=== PATIENT | female | born 1945 | race African-American/Black ===

== ENCOUNTER 2019-04-17 09:52 | Inpatient (IN) | payer MEDICARE, OTHER ==
[~2019-04-17] VITALS: Ht 167.6 cm; Wt 90.9 kg
[~2019-04-17 09:52] MED LIST: AMLO10TA80 PO; AMLO5TAB4; ASPI-1393 PO; ASPI-518 PO; BENA10TA12; BISA-81 PO; CHOL200074 PO; COR3; HYDR-4134 PO; INSU3INS8; ISOS10TA53 PO; METF500T7; SIMV10TA2; TORS20TA4 PO
[2019-04-17] MEDS ORDERED: ACETAMINOPHEN 325MG TABLET PO ONE (10:30)
[2019-04-17 11:07] LABS: BASOPHILS % 1.4 % (0.0-2.0); EOSINOPHILS % 5.6 % (0.0-5.0); HEMATOCRIT. 34.1 % (36.0-48.0); HEMOGLOBIN. 11.2 g/dL (12.0-16.0); LYMPHOCYTES % 20.5 % (20.0-50.0); MEAN CORPUSCULAR HEMOGLOBIN 30.1 pg (28.0-32.0); MEAN CORPUSCULAR VOLUME 91.7 fL (81.0-99.0); NEUTROPHILS % 64.5 % (40.0-76.0); PLATELET 195 x1000/uL (130-400); RED BLOOD CELL COUNT 3.72 mill/uL (4.2-5.4); RED CELL DISTRIBUTION WIDTH 15.5 % (11.6-14.6)
[2019-04-17 11:18] LABS: CHLORIDE 94 mEq/L (98-107)
[2019-04-17 11:26] LABS: BETA HYDROXYBUTYRATE 0.1 mMol/L (0.0-0.3)
[2019-04-17] MEDS ORDERED: INSULIN REGULAR (DRIP) 100 UNITS in SODIUM CHLORIDE 0.9% 100 ML IV ONE (13:00)
[2019-04-17] MEDS ORDERED: INSULIN REGULAR (DRIP) 100 UNITS in SODIUM CHLORIDE 0.9% 99 ML IV ONE (13:15)
[2019-04-17 13:27] LABS: CLARITY URINE CLEAR (CLEAR); COLOR URINE YELLOW (YELLOW); KETONES URINE TRACE (NEGATIVE); LEUKOCYTE ESTERASE URINE NEGATIVE (NEGATIVE); NITRITE URINE NEGATIVE (NEGATIVE); OCCULT BLOOD URINE TRACE (NEGATIVE); PH URINE 6.5 (4.5-8.0); PROTEIN URINE 2+ (NEGATIVE); UROBILINOGEN URINE 0.2 E.U./dL (0.2-1.0)
[2019-04-17] MEDS ORDERED: CLONIDINE 0.2MG TABLET PO ONE (13:30)
[2019-04-17 13:45] LABS: *AMPHETAMINES SCREEN URINE NEGATIVE (NEGATIVE); *BARBITURATES SCREEN URINE NEGATIVE (NEGATIVE); *BENZODIAZEPINES SCREEN URINE NEGATIVE (NEGATIVE); *COCAINE SCREEN URINE NEGATIVE (NEGATIVE); METHADONE URINE SCREEN NEGATIVE (NEGATIVE)
[2019-04-17 13:46] LABS: CANNABINOID URINE SCREEN NEGATIVE (NEGATIVE); OPIATES URINE SCREEN NEGATIVE (NEGATIVE); PHENCYCLIDINE URINE SCREEN NEGATIVE (NEGATIVE)
[2019-04-17] MEDS ORDERED: DOCUSATE SODIUM 100MG CAPSULE PO PRN (15:15)
[2019-04-17] MEDS ORDERED: DIPHENHYDRAMINE 50MG/ML VIAL IV PRN (15:15)
[2019-04-17] MEDS ORDERED: ONDANSETRON HCL 4MG/2ML INJ IV PRN (15:15)
[2019-04-17] MEDS ORDERED: MAGNESIUM/ALUMINUM HYDROXIDE/SIMETHICONE 30ML UDC PO PRN (15:15)
[2019-04-17] MEDS ORDERED: GUAIFENESIN 200MG/10ML SUGAR FREE UDC PO PRN (15:15)
[2019-04-17] MEDS ORDERED: DEXTROSE 50% WATER 50ML SYRINGE IV PRN (15:15)
[2019-04-17] MEDS ORDERED: IPRATROPIUM/ALBUTEROL 0.5-3(2.5)MG/3ML NEB INH PRN (15:15)
[2019-04-17] MEDS ORDERED: TRAMADOL 50MG TABLET PO PRN (15:15)
[2019-04-17] MEDS ORDERED: NITROGLYCERIN 0.4MG TABLET SL SL PRN (15:15)
[2019-04-17] MEDS ORDERED: MORPHINE SULFATE 2 MG/ML CPJ (NOT FOR IM USE) IV PRN (15:15)
[2019-04-17] MEDS ORDERED: CLONIDINE 0.1MG TABLET PO PRN (15:15)
[2019-04-17] MEDS ORDERED: ENOXAPARIN 40MG/0.4ML SYR SUBCUT SCH (17:00)
[2019-04-17 18:28] VITALS: BP 142/65
[2019-04-17] MEDS: INSULIN LISPRO 100 UNITS/ML SUBCUT SCH ×2 (18:30→21:43)
[2019-04-17] MEDS: BLOOD SUGAR DIAGNOSTIC STRIP TEST SCH ×2 (18:52→21:42)
[2019-04-17 20:00] VITALS: BP_SYST 145; BP_SYST 159; BP_DIAS 65
[2019-04-17] MEDS ORDERED: ZOLPIDEM TARTRATE 5MG TABLET PO PRN (21:00)
[2019-04-17] MEDS: HYDRALAZINE HCL 50MG TABLET PO SCH (21:41)
[2019-04-17] MEDS: FAMOTIDINE 20MG TABLET PO SCH (21:42)
[2019-04-17] MEDS: LISINOPRIL 20MG TABLET PO SCH (21:42)
[2019-04-17 22:00] VITALS: BP 172/75
[2019-04-17] MEDS ORDERED: INSULIN GLARGINE UD 100 UNITS/ML SYR SUBCUT SCH (22:00)
[2019-04-17] MEDS ORDERED: CALC667T2 PO (23:11)
[2019-04-17] MEDS ORDERED: TRAM50TA3 PO (23:12)
[2019-04-17 23:44] LABS: CREATINE KINASE MB FRACTION 2.3 ng/mL (0.5-3.6)
[2019-04-18] VITALS (12 sets, daily range): BP systolic 119–171; BP diastolic 50–100
[2019-04-18] MEDS: HYDRALAZINE HCL 50MG TABLET PO SCH ×2 (06:00→21:58)
[2019-04-18 07:28] LABS: BASOPHILS % 0.8 % (0.0-2.0); EOSINOPHILS % 10.8 % (0.0-5.0); HEMATOCRIT. 33.3 % (36.0-48.0); HEMOGLOBIN. 11.3 g/dL (12.0-16.0); LYMPHOCYTES % 30.6 % (20.0-50.0); MEAN CORPUSCULAR HEMOGLOBIN 30.4 pg (28.0-32.0); MEAN CORPUSCULAR VOLUME 89.4 fL (81.0-99.0); MEAN PLATELET VOLUME 7.6 fl (7.4-10.4); MONOCYTES % 8.7 % (2.0-8.0); NEUTROPHILS % 49.1 % (40.0-76.0); PLATELET 215 x1000/uL (130-400); RED BLOOD CELL COUNT 3.73 mill/uL (4.2-5.4); RED CELL DISTRIBUTION WIDTH 15.8 % (11.6-14.6)
[2019-04-18 07:50] LABS: CREATINE KINASE MB FRACTION 1.9 ng/mL (0.5-3.6)
[2019-04-18] MEDS: BLOOD SUGAR DIAGNOSTIC STRIP TEST SCH ×4 (08:10→21:58)
[2019-04-18] MEDS: INSULIN LISPRO 100 UNITS/ML SUBCUT SCH ×4 (08:22→21:55)
[2019-04-18] MEDS: FOLIC ACID/VITAMIN B COMP W-C TABLET PO SCH (08:22)
[2019-04-18] MEDS ORDERED: ASPIRIN 325MG EC TABLET PO SCH (09:00)
[2019-04-18] MEDS: LISINOPRIL 20MG TABLET PO SCH ×3 (09:47→21:56)
[2019-04-18] MEDS: AMLODIPINE 10MG TABLET PO SCH (09:47)
[2019-04-18] MEDS: SEVELAMER CARBONATE 800 MG TABLET PO SCH ×3 (09:49→18:17)
[2019-04-18] MEDS ORDERED: CLONIDINE 0.2MG TABLET PO PRN (15:15)
[2019-04-18] MEDS ORDERED: CLONIDINE 0.1MG TABLET PO PRN (15:30)
[2019-04-18] MEDS ORDERED: ROPINIROLE HCL 0.25MG TABLET PO PRN (15:42)
[2019-04-18] MEDS: CARVEDILOL 3.125 MG TABLET PO SCH (18:17)
[2019-04-18] MEDS ORDERED: INSULIN GLARGINE UD 100 UNITS/ML SYR SUBCUT SCH (22:00)
[2019-04-18] MEDS: FAMOTIDINE 20MG TABLET PO SCH (22:11)
[2019-04-18] MEDS: ACETAMINOPHEN 325MG TABLET PO PRN (22:56)
[2019-04-19] VITALS (11 sets, daily range): BP systolic 134–181; BP diastolic 48–105
[2019-04-19 05:32] LABS: BASOPHILS % 1.1 % (0.0-2.0); EOSINOPHILS % 9.4 % (0.0-5.0); HEMATOCRIT. 34.4 % (36.0-48.0); HEMOGLOBIN. 11.3 g/dL (12.0-16.0); LYMPHOCYTES % 28.2 % (20.0-50.0); MEAN CORPUSCULAR HEMOGLOBIN 29.8 pg (28.0-32.0); MEAN CORPUSCULAR VOLUME 90.4 fL (81.0-99.0); MEAN PLATELET VOLUME 7.5 fl (7.4-10.4); MONOCYTES % 9.6 % (2.0-8.0); NEUTROPHILS % 51.7 % (40.0-76.0); PLATELET 208 x1000/uL (130-400); RED CELL DISTRIBUTION WIDTH 15.7 % (11.6-14.6)
[2019-04-19 05:37] LABS: CHLORIDE 109 mEq/L (98-107)
[2019-04-19 06:00] LABS: PHOSPHORUS 4.6 mg/dL (2.5-4.9)
[2019-04-19] MEDS: CARVEDILOL 3.125 MG TABLET PO SCH (06:00)
[2019-04-19 06:03] LABS: CREATINE KINASE 90 IU/L (26-192)
[2019-04-19 06:06] LABS: CREATINE KINASE MB FRACTION 1.5 ng/mL (0.5-3.6)
[2019-04-19] MEDS: HYDRALAZINE HCL 50MG TABLET PO SCH ×2 (06:22→13:40)
[2019-04-19] MEDS: BLOOD SUGAR DIAGNOSTIC STRIP TEST SCH ×2 (07:41→13:26)
[2019-04-19] MEDS: INSULIN LISPRO 100 UNITS/ML SUBCUT SCH ×2 (07:41→13:41)
[2019-04-19] MEDS: AMLODIPINE 10MG TABLET PO SCH (10:02)
[2019-04-19] MEDS: SEVELAMER CARBONATE 800 MG TABLET PO SCH ×2 (10:02→13:40)
[2019-04-19] MEDS: FOLIC ACID/VITAMIN B COMP W-C TABLET PO SCH (10:02)
[2019-04-19] MEDS: LISINOPRIL 20MG TABLET PO SCH (10:03)
[2019-04-19] MEDS: ACETAMINOPHEN 325MG TABLET PO PRN (14:36)
== END 2019-04-19 16:11 | disposition home health service (06) | DRG 291 ==
LOC: ER 09:52 → SUPCPDRO 14:57 → 5EST 14:57 → EDBEDREQ 15:02 → EDBEDREQSVC 15:12 → ENRESERV 16:51
PROVIDERS: ADMIT Internal Medicine; ATTEND Internal Medicine
PROC: 5A1D70Z Performance of Urinary Filtration, Intermittent, Less than 6 Hours Per Day (ICD-10-PCS; principal; 2019-04-18)
DX: I13.2 Hypertensive heart and chronic kidney disease with heart failure and with stage 5 chronic kidney disease, or end stage renal disease (principal); N18.6 End stage renal disease; I50.31 Acute diastolic (congestive) heart failure; E87.1 Hypo-osmolality and hyponatremia; E87.70 Fluid overload, unspecified; I42.9 Cardiomyopathy, unspecified; E11.65 Type 2 diabetes mellitus with hyperglycemia; E11.22 Type 2 diabetes mellitus with diabetic chronic kidney disease; E83.51 Hypocalcemia; E88.09 Other disorders of plasma-protein metabolism, not elsewhere classified; D63.8 Anemia in other chronic diseases classified elsewhere; E83.42 Hypomagnesemia; E78.00 Pure hypercholesterolemia, unspecified; I27.20 Pulmonary hypertension, unspecified; E78.5 Hyperlipidemia, unspecified; I70.90 Unspecified atherosclerosis; I36.1 Nonrheumatic tricuspid (valve) insufficiency; E83.41 Hypermagnesemia; I20.8 Other forms of angina pectoris; Z82.49 Family history of ischemic heart disease and other diseases of the circulatory system; Z83.3 Family history of diabetes mellitus; Z90.710 Acquired absence of both cervix and uterus; Z91.11 Patient's noncompliance with dietary regimen; Z91.15 Patient's noncompliance with renal dialysis; Z91.19 Patient's noncompliance with other medical treatment and regimen; Z98.51 Tubal ligation status; Z99.2 Dependence on renal dialysis; Z79.899 Other long term (current) drug therapy; Z87.891 Personal history of nicotine dependence; Z79.82 Long term (current) use of aspirin; Z79.84 Long term (current) use of oral hypoglycemic drugs; Z79.4 Long term (current) use of insulin
CPT/HCPCS: 36415; 71045; 80048; 80061; 80305; 81003; 82010; 82550; 82553; 82962; 83036; 83605; 83735; 83880; 84100; 84145; 84484; 93005; 93306; 93970; 96374; 96375; 97162; 97165; 99285; J1650; J1815; J2270; J7050

== ENCOUNTER 2019-05-31 13:31 | Emergency (ER) | payer MEDICARE, OTHER ==
[~2019-05-31] VITALS: Ht 172.7 cm; Wt 94.0 kg
[~2019-05-31 13:31] MED LIST changes: -AMLO5TAB4; -ASPI-1393 PO; -BENA10TA12; -BISA-81 PO; +CALC667T2 PO; -COR3; -INSU3INS8; -METF500T7; -SIMV10TA2; +TRAM50TA3 PO
[2019-05-31] MEDS ORDERED: ACETAMINOPHEN 325MG TABLET PO ONE (16:45)
[2019-05-31 18:51] VITALS: BP 145/75
== END 2019-06-01 11:09 | disposition home or self-care (01) ==
LOC: ER 13:31
DX: M54.5 Low back pain (principal); E11.22 Type 2 diabetes mellitus with diabetic chronic kidney disease; I13.2 Hypertensive heart and chronic kidney disease with heart failure and with stage 5 chronic kidney disease, or end stage renal disease; I50.9 Heart failure, unspecified; N18.6 End stage renal disease; Z99.2 Dependence on renal dialysis; Z90.710 Acquired absence of both cervix and uterus; V73.6XXA Passenger on bus injured in collision with car, pick-up truck or van in traffic accident, initial encounter; Y93.89 Activity, other specified; Y92.488 Other paved roadways as the place of occurrence of the external cause
CPT/HCPCS: 72100; 99283